=== PATIENT | female | born 1990 | race Caucasian/White ===

== ENCOUNTER 2019-01-01 19:11 | Inpatient (IN) | payer OTHER ==
--- NOTE | 2019-01-01 20:00 | Non Stress Test Report ---
Non Stress Test Datetime Report Generated by CPN: 01/01/2019 20:00 DEMOGRAPHIC EGA NST: 40.0 INDICATION Indication for Study (NST) Other: lc MONITORING Monitor Explained: Monitor Explained; Test Explained; Patient Verbalized Understanding Time on Monitor: 01/01/2019 19:30 Time off Monitor: 01/01/2019 19:50 NST Duration: 20 NST INTERVENTIONS NST Interventions: PO Hydration; Reposition Patient Physician Notified NST: Dr Younger BABY A: [id number] BABY A Movement : Present Contraction Frequency : irr FHR Baseline : 120 Accelerations : 15X15 Decelerations : None Variability : Moderate 6-25bpm NST Review: Meets Criteria for Reactive NST NST Review and Verified By : ZENOBIA Loving Results: Reactive NST REPORT Report Trigger: Send Report
[2019-01-01 20:25] LABS: APPEARANCE,URINE SLIGHTLY-CLOUDY; BILIRUBIN,URINE NEGATIVE (NEGATIVE); COLOR,URINE YELLOW; GLUCOSE, URINE NEGATIVE (NEGATIVE); KETONES,URINE 20 mg/dL (NEGATIVE); LEUKOCYTE ESTERASE,URINE TRACE (NEGATIVE); NITRITE,URINE NEGATIVE (NEGATIVE); PROTEIN,URINE NEGATIVE (NEGATIVE); URINE SPECIFIC GRAVITY 1.013; UROBILINOGEN,URINE NEGATIVE mg/dL (<2.0)
[2019-01-01 20:38] LABS: URINE AMPHETAMINES SCREEN NEGATIVE; URINE BARBITURATES SCREEN NEGATIVE; URINE BENZODIAZEPINES SCREEN NEGATIVE; URINE COCAINE SCREEN NEGATIVE; URINE MARIJUANA (THC) SCREEN NEGATIVE; URINE METHADONE SCREEN NEGATIVE; URINE PHENCYCLIDINE SCREEN NEGATIVE
[2019-01-01] MEDS ORDERED: OXYTOCIN 10 UNIT/ML VIAL ONE (21:01)
[2019-01-01] MEDS ORDERED: OXYTOCIN/NORMAL SALINE 20 UNIT/1,000 ML RTUINJ ONE (21:01)
[2019-01-01] MEDS ORDERED: PENICILLIN G-K 5 MILLION UNIT VIAL ONE (21:01)
[2019-01-01] MEDS ORDERED: MISOPROSTOL 0.2 MG TABLET ONE (21:01)
[2019-01-01] MEDS ORDERED: LIDOCAINE 1% INJ-PF (10 MG/ML) 30 ML SDV ONE (21:01)
[2019-01-01] MEDS ORDERED: PENICILLIN G POTASSIUM 5,000,000 UNIT in DEXTROSE 5%-WATER 100 ML IV ONE (21:27)
[2019-01-01] MEDS ORDERED: RINGERS SOLUTION,LACTATED 1,000 ML IV PRN (21:27)
[2019-01-01] MEDS ORDERED: PHENYLEPHRINE HCL INJ/PF 10 MG/1 ML SDV ONE (21:47)
[2019-01-01] MEDS ORDERED: EPHEDRINE SULFATE INJ 50 MG/1 ML AMPULE ONE (21:47)
[2019-01-01] MEDS ORDERED: FENTANYL CITRATE INJ/PF 100 MCG/2 ML AMPUL ONE (21:47)
[2019-01-01 21:48] LABS: ABSOLUTE BASOPHILS # (AUTO) 0.1 10^3/uL (0.0-0.2); ABSOLUTE EOSINOPHILS # (AUTO) 0.1 10^3/uL (0.0-0.6); ABSOLUTE LYMPHOCYTES (AUTO) 2.7 10^3/uL (0.5-4.7); ABSOLUTE MONOCYTES (AUTO) 1.1 10^3/uL (0.1-1.4); ABSOLUTE NEUT (AUTO) 12.7 10^3/uL (1.7-8.2); BASOPHILS % (AUTO) 0.3 % (0-2); EOSINOPHILS % (AUTO) 0.6 % (0-6); HEMATOCRIT 38.7 % (36.0-47.0); HEMOGLOBIN 13.5 g/dL (12.0-15.5); LYMPHOCYTES % (AUTO) 16.1 % (13-45); MEAN CORPUSCULAR HEMOGLOBIN 31.2 pg (27.0-33.4); MEAN CORPUSCULAR HGB CONC 34.7 g/dL (32.0-36.0); MEAN CORPUSCULAR VOLUME 90 fl (80-97); MONOCYTES % (AUTO) 6.6 % (3-13); PLATELET COUNT 164 10^3/uL (150-450); RED BLOOD COUNT 4.31 10^6/uL (3.72-5.28); RED CELL DISTRIBUTION WIDTH 13.6 % (11.5-14.0); SEGMENTED NEUTROPHILS % (AUTO) 76.4 % (42-78); TOTAL CELLS COUNTED % (AUTO) 100 %; WHITE BLOOD COUNT 16.6 10^3/uL (4.0-10.5)
[2019-01-01] MEDS ORDERED: FENTANYL/BUPIVACAINE/NS/PF 300 MCG/150 ML RTUINJ EPI ONE (21:48)
[2019-01-01] MEDS ORDERED: BUPIVACAINE HCL 0.25 % INJ/PF (2.5 MG/1 ML) 30 ML VIAL ONE (21:48)
[2019-01-01] MEDS ORDERED: ONDANSETRON HCL INJ/PF 4 MG/2 ML SDV ONE (21:58)
--- NOTE | 2019-01-01 22:52 | Admission Physical ---
Datetime Report Generated by CPN: 01/01/2019 22:52 CURRENT ADMISSION Chief Complaint: Uterine Contractions Indication for Induction: Not Applicable Admit Impression : Term, Intrauterine ; Active Labor; Intact Membranes Admit Plan: Admit to Unit; Initiate Labor Protocol ALLERGIES Medication Allergies: No Medication Allergies: No Known Allergies (01/01/2019) Latex: No Latex Allergies Food Allergies: n/a Environmental Allergies: n/a OBSTETRICAL HISTORY EDC: 01/01/2019 00:00 : 4 Para: 3 Gestational Diabetes: No Rh Sensitization: No Incompetent Cervix: No PERCY: No Infertility: No ART Treatment: No Uterine Anomaly: No IUGR: No Hx Previous C/S: No Macrosomia: No Hx Loss/Stillborn: No PIH: No Hx : No Placenta Previa/Abruption: No Depression/PP Depression: Yes PTL/PROM: No Post Hemorrhage: No Current Procedures: Ultrasound; NST Obstetrical History Comments: g1- 2012 girl g22014 boy g3 girl boy SEE RECORDS Alcohol: No Marijuana : No Cocaine: No Other Illicit Drugs: No Cigarettes: Never Smoker. 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 Surgery: No Heart Disease: No Hosp/Surgery: No Autoimmune Disorder: No Anesthetic Complications: No Kidney Disease: No Abnormal Pap Smear: No Neuro/Epilepsy: No Psychiatric Disorders: No Other Medical Diseases: No Hepatitis/Liver Disease: No Significant Family History: No Varicosities/Phlebitis: No Trauma/Violence : No Thyroid Dysfunction: No PHYSICAL EXAM General: Normal HEENT: Normal Neurologic: Normal Thyroid: Normal Heart: Normal Lungs: Normal Breast: Normal Back: Normal Abdomen: Normal Genitourinary Exam: Normal Extremities: Normal DTRs: Normal Pelvic Type: Adequate Vital Signs: Reviewed VAGINAL EXAM Dilatation: 8 Effacement: 100 Station: -1 Contraction Comments: q 2 MEMBRANES Membranes: Intact FETUS A EGA: 40.0 Monitoring: External US FHR- Baseline: 120s Variability: Moderate 6-25bpm Accelerations: 15X15 Decelerations: None FHR Category: Category I Admit Comment: This 28 yo presented to L_D c/o contractions. Her cervix was 3 cm and walked for a while. She progressed 4 cm quickly. She is GBS Positive. She reports good movement. No co-morbidities. PLANS FOR LABOR AND DELIVERY Labor and Delivery: None Pain Management: Epidural Feeding Preference: Formula Benefit of Breast Feed Discussed: Yes Circumcision: Yes INFORMED CONSENT Signature: with User ID: [email or web address]
[2019-01-01] MEDS ORDERED: ONDANSETRON HCL INJ/PF 4 MG/2 ML SDV IV ONE (23:39)
[2019-01-02] MEDS ORDERED: DIBUCAINE 1% OINTMENT 56 GM TP PRN (00:11)
[2019-01-02] MEDS ORDERED: OXYTOCIN/NORMAL SALINE 20 UNIT/1,000 ML RTUINJ IV PRN (00:11)
[2019-01-02] MEDS ORDERED: ZOLPIDEM TARTRATE 5 MG TABLET PO PRN (00:11)
[2019-01-02] MEDS ORDERED: BENZOCAINE/MENTHOL AEROSOL SPRAY 56 ML TOP PRN (00:11)
[2019-01-02] MEDS ORDERED: MEASLES,MUMPS&RUBELLA VACC/PF 0.5 ML VIAL SUBCUT PRN (00:11)
[2019-01-02] MEDS ORDERED: DIPH/PERTUSS(ACELL)/TETANUS VAC/PF 0.5 ML SYR (>=10YO) IM PRN (00:11)
[2019-01-02] MEDS ORDERED: ACETAMINOPHEN WITH CODEINE #3 TABLET PO PRN ×2 (00:11)
[2019-01-02] MEDS ORDERED: PENICILLIN G POTASSIUM 2,500,000 UNIT in DEXTROSE 5%-WATER 50 ML IV SCH (01:27)
--- NOTE | 2019-01-02 02:07 | Delivery Summary ---
Del Sum A-C Datetime Report Generated by CPN: 01/02/2019 02:07 DELIVERY PERSONNEL DELIVERY PERSONNEL: [id number] Delivery Doctor:: Joanne Jorgensen MD Labor and Delivery Nurse:: Mau Cardozo RN Nursery Nurse:: Carol Butterfield, RN MATERNAL INFORMATION Delivery Anesthesia: Epidural Delivery QBL: 150 Maternal Complications: None Provider Comments: of a viable male @2359 w/ an RODNEY presentation; APGARS 9, 9; no lacs LABOR SUMMARY EDC: 01/01/2019 00:00 Attempted: No Labor Anesthesia: Epidural LABOR INFORMATION Reason for Induction: Not Applicable Onset of Labor: 01/01/2019 17:00 Complete Dilatation: 01/01/2019 23:42 Other Ripening Agents: n/a Oxytocin: N/A Group B Beta Strep: positive Antibiotics # of Doses: 1 Antibiotics Time of Last Dose: 2130 Name of Antibiotic Given: PENICILLIN Steroids Given: None Reason Steroids Not Administered: Not Applicable Other Reason Not Administered: n/a MEMBRANES Membranes Rupture Method: Artificial Rupture of Membranes: 01/01/2019 23:07 Length of Rupture (hr): 0.87 Amniotic Fluid Color: Clear Amniotic Fluid Amount: Small Amniotic Fluid Odor: Normal STAGES OF LABOR Stage 1 hr: 6 Stage 1 min: 42 Stage 2 hr: 0 Stage 2 min: 17 Stage 3 hr: 0 Stage 3 min: 5 Total Time in Labor hr: 7 Total Time in Labor min: 4 VAGINAL DELIVERY Episiotomy: None Laceration #1: None Laceration Repair: Not Applicable Sponge Count Correct: Yes Sharps Count Correct: Yes CSECTION DELIVERY Primary Indication: N/A Secondary Indication: N/A BABY A INFORMATION Infant Delivery Date/Time: 01/01/2019 23:59 Method of Delivery: Vaginal Born in Route : No : N/A Forceps: N/A Vacuum Extraction: N/A Shoulder Dystocia : No PRESENTATION/POSITION BABY A Presentation: Cephalic Cephalic Presentation: Vertex Vertex Position: Right Occipital Anterior Breech Presentation: N/A PLACENTA INFORMATION BABY A Placenta Delivery Time : 01/02/2019 00:04 Placenta Method of Delivery: Spontaneous Placenta Status: Delivered SCORES BABY A Heart Rate 1 min: >100 bpm Resp Effort 1 min: Good Cry Reflex Irritability 1 min: Cough or Sneeze or Pulls Away Muscle Tone 1 min: Active Motion Color 1 min: Body [place], Extremities Blue Resuscitation Effort 1 min: Tactile Stimulation SCORE 1 MIN: 9 Heart Rate 5 min: >100 bpm Resp Effort 5 min: Good Cry Reflex Irritability 5 min: Cough or Sneeze or Pulls Away Muscle Tone 5 min: Active Motion Color 5 min: Body [place], Extremities Blue Resuscitation Effort 5 min: Tactile Stimulation SCORE 5 MIN: 9 INFANT INFORMATION BABY A Gestational Age at Delivery: 40.0 Gestational Status: Full Term- 39- 40.6 Weeks Outcome : Liveborn Infant Condition : Stable Infant Sex: Male IDENTIFICATION BABY A Verification Date/Time: 01/02/2019 00:09 ID Band Number: [id number] Mother's Name Verified: Yes RN Verifying : , RN and Laisha, RN WEIGHT/LENGTH BABY A Birthweight (gm): 3597 Weight (lb): 7 Weight (oz): 15 Length (in): 21.50 Infant Length (cm): 54.61 CORD INFORMATION BABY A No. Cord Vessels: 3 Nuchal Cord : N/A Cord Blood Taken: Yes-For Eval (Mom's Blood Type - or O+) Infant Suction: None ASSESSMENT BABY A Skin to Skin: Yes BABY B INFORMATION : N/A SIGNATURES Signature: with User ID: [email or web address]
[2019-01-02] MEDS: IBUPROFEN 800 MG TABLET PO SCH ×2 (06:15→14:00)
[2019-01-02] MEDS ORDERED: INFLUENZA QUAD (6MOS+) 2019-20 VAC 0.5 ML SYR IM ONE (08:00)
--- NOTE | 2019-01-02 09:11 | PDOC PROGRESS REPORT ---
Subjective-OB Progress Note for:: 01/02/19 Subjective: Doing well, no c/o, bottle feeding, wearing bra, hsb in room, no c/o Physical Exam (OB) Vital Signs: Temp Pulse Resp BP Pulse Ox 98.0 F 63 16 111/62 100 01/02/19 07:56 01/02/19 07:56 01/02/19 07:56 01/02/19 07:56 01/02/19 07:56 Intake & Output 01/01/19 01/02/19 01/03/19 06:59 06:59 06:59 Weight 107 kg - PIH/Pre-Eclampsia Headache: Absent Epigastric Pain: No Visual Changes: No - Lochia Lochia Amount: Scant < 10 ml Lochia Color: Rubra/Red - Abdomen Description: Tender, Soft Hernia Present: No Fundal Description: Firm, Midline Fundal Height: u/u - u/2 Objective-Diagnostic Laboratory: 01/01/19 21:36 01/01/19 01/01/19 01/01/19 19:58 21:36 21:36 WBC 16.6 H RBC 4.31 Hgb 13.5 Hct 38.7 MCV 90 MCH 31.2 MCHC 34.7 RDW 13.6 Plt Count 164 Seg Neutrophils % 76.4 Urine Color YELLOW Urine Appearance SLIGHTLY-CLOUDY Urine pH 6.0 Ur Specific [place] 1.013 Urine Protein NEGATIVE Urine Glucose (UA) NEGATIVE Urine Ketones 20 H Urine Blood NEGATIVE Urine Nitrite NEGATIVE Ur Leukocyte Esterase TRACE H Blood Type O POSITIVE Antibody Screen NEGATIVE Assessment and Plan(PN) - Assessment and Plan (2) Anxiety Is this a current diagnosis for this admission?: Yes (3) Depression Qualifiers: Major depression episode severity: unspecified Is this a current diagnosis for this admission?: Yes - Time Spent with Patient Time with patient: Less than 15 minutes Medications reviewed and adjusted accordingly: Yes - Disposition Anticipated Discharge: Home Within: within 24 hours
[2019-01-02] MEDS: SENNOSIDES/DOCUSATE 8.6-50 MG 1 EACH TABLET PO SCH (09:34)
[2019-01-02] MEDS: DOCUSATE SODIUM 100 MG CAPSULE PO SCH ×2 (09:34→18:04)
[2019-01-02] MEDS: FERROUS SULFATE 325 MG TABLET PO SCH ×2 (09:34→18:03)
[2019-01-02] MEDS: PRENATAL VITAMIN W DHA CAPSULE PO SCH (09:34)
[2019-01-03] MEDS: IBUPROFEN 800 MG TABLET PO SCH ×3 (01:15→13:09)
[2019-01-03 07:30] LABS: HEMATOCRIT 37.7 % (36.0-47.0); HEMOGLOBIN 12.8 g/dL (12.0-15.5); MEAN CORPUSCULAR HEMOGLOBIN 31.6 pg (27.0-33.4); MEAN CORPUSCULAR VOLUME 93 fl (80-97); PLATELET COUNT 129 10^3/uL (150-450); RED BLOOD COUNT 4.06 10^6/uL (3.72-5.28); RED CELL DISTRIBUTION WIDTH 13.7 % (11.5-14.0); WHITE BLOOD COUNT 10.7 10^3/uL (4.0-10.5)
[2019-01-03 08:01] VITALS: BP 118/58
--- NOTE | 2019-01-03 10:13 | PDOC DISCHARGE SUMMARY ---
Impression - Admit/DC Date/PCP Admission Date/Primary Care Provider: 01/01/19 21:29 [facility] Discharge Date: 01/03/19 - PP Day #2, doing well, no complaints, bottlefeeding, O+, Rubella Immune. GBS+ this . - Discharge Diagnosis (1) Positive GBS test Is this a current diagnosis for this admission?: Yes (2) Normal course Is this a current diagnosis for this admission?: Yes (3) Anxiety Is this a current diagnosis for this admission?: Yes (4) Delivery normal Is this a current diagnosis for this admission?: Yes (5) Depression Is this a current diagnosis for this admission?: Yes - Additional Information Resuscitation Status: Full Code Discharge Diet: As Tolerated, Regular Discharge Activity: Activity As Tolerated, No Lifting Over 10 Pounds, Pelvic Rest [facility]errals: [facility] [Primary Care Provider] - Prescriptions: Ibuprofen [Motrin 800 mg Tablet] 800 mg PO Q8 #60 tablet Home Medications: Prenat 115/Iron Fum/Folic/Dss [ 19 Tablet] 1 tab PO DAILY 01/01/19 Sertraline HCl [Zoloft 50 mg Tablet] 50 mg PO DAILY 01/01/19 Ibuprofen [Motrin 800 mg Tablet] 800 mg PO Q8 #60 tablet 01/03/19 HPI Reason(s) for Admission: Onset of Labor Procedures: NST, Ultrasound Intrapartum Procedure(s): Spontaneous Vaginal Delivery Hospital Course Hospital Course: routine Results Laboratory Results: WBC 10.7 10^3/uL (4.0-10.5) H 01/03/19 07:02 RBC 4.06 10^6/uL (3.72-5.28) 01/03/19 07:02 Hgb 12.8 g/dL (12.0-15.5) 01/03/19 07:02 Hct 37.7 % (36.0-47.0) 01/03/19 07:02 MCV 93 fl (80-97) 01/03/19 07:02 MCH 31.6 pg (27.0-33.4) 01/03/19 07:02 MCHC 34.0 g/dL (32.0-36.0) 01/03/19 07:02 RDW 13.7 % (11.5-14.0) 01/03/19 07:02 Plt Count 129 10^3/uL (150-450) L 01/03/19 07:02 Lymph % (Auto) 16.1 % (13-45) 01/01/19 21:36 Carter % (Auto) 6.6 % (3-13) 01/01/19 21:36 Eos % (Auto) 0.6 % (0-6) 01/01/19 21:36 Baso % (Auto) 0.3 % (0-2) 01/01/19 21:36 Absolute Neuts (auto) 12.7 10^3/uL (1.7-8.2) H 01/01/19 21:36 Absolute Lymphs (auto) 2.7 10^3/uL (0.5-4.7) 01/01/19 21:36 Absolute Monos (auto) 1.1 10^3/uL (0.1-1.4) 01/01/19 21:36 Absolute Eos (auto) 0.1 10^3/uL (0.0-0.6) 01/01/19 21:36 Absolute Basos (auto) 0.1 10^3/uL (0.0-0.2) 01/01/19 21:36 Seg Neutrophils % 76.4 % (42-78) 01/01/19 21:36 Urine Color YELLOW 01/01/19 19:58 Urine Appearance SLIGHTLY-CLOUDY 01/01/19 19:58 Urine pH 6.0 (5.0-9.0) 01/01/19 19:58 Ur Specific Bells 1.013 01/01/19 19:58 Urine Protein NEGATIVE mg/dL (NEGATIVE) 01/01/19 19:58 Urine Glucose (UA) NEGATIVE mg/dL (NEGATIVE) 01/01/19 19:58 Urine Ketones 20 mg/dL (NEGATIVE) H 01/01/19 19:58 Urine Blood NEGATIVE (NEGATIVE) 01/01/19 19:58 Urine Nitrite NEGATIVE (NEGATIVE) 01/01/19 19:58 Urine Bilirubin NEGATIVE (NEGATIVE) 01/01/19 19:58 Urine Urobilinogen NEGATIVE mg/dL (<2.0) 01/01/19 19:58 Ur Leukocyte Esterase TRACE (NEGATIVE) H 01/01/19 19:58 Urine Ascorbic Acid NEGATIVE (NEGATIVE) 01/01/19 19:58 Urine Opiates Screen NEGATIVE 01/01/19 19:58 Urine Methadone Screen NEGATIVE 01/01/19 19:58 Ur Barbiturates Screen NEGATIVE 01/01/19 19:58 Ur Phencyclidine Scrn NEGATIVE 01/01/19 19:58 Ur Amphetamines Screen NEGATIVE 01/01/19 19:58 U Benzodiazepines Scrn NEGATIVE 01/01/19 19:58 Urine Cocaine Screen NEGATIVE 01/01/19 19:58 U Marijuana (THC) Screen NEGATIVE 01/01/19 19:58 RPR NONREACTIVE (NONREACTIVE) 01/01/19 21:36 Blood Type O POSITIVE 01/01/19 21:36 Antibody Screen NEGATIVE 01/01/19 21:36 Plan Health Concerns: watch for PP depression Plan of Treatment: f/u with [facility] in 4 wks Time Spent: Less than 30 Minutes
[2019-01-03] MEDS: FERROUS SULFATE 325 MG TABLET PO SCH (10:15)
[2019-01-03] MEDS: DOCUSATE SODIUM 100 MG CAPSULE PO SCH (10:15)
[2019-01-03] MEDS: SENNOSIDES/DOCUSATE 8.6-50 MG 1 EACH TABLET PO SCH (10:15)
[2019-01-03] MEDS: PRENATAL VITAMIN W DHA CAPSULE PO SCH (10:15)
== END 2019-01-03 14:10 | disposition home or self-care (01) | DRG 807 ==
LOC: LC 19:11 → LR 21:29 → 2S 01-02 02:21
PROVIDERS: ADMIT Obstetrics & Gynecology; ATTEND Obstetrics & Gynecology
PROC: 10E0XZZ Delivery of Products of Conception, External Approach (ICD-10-PCS; principal; 2019-01-01)
DX: O99.824 Streptococcus B carrier state complicating childbirth (principal); Z37.0 Single live birth; O99.344 Other mental disorders complicating childbirth; F41.9 Anxiety disorder, unspecified; F32.9 Major depressive disorder, single episode, unspecified; Z3A.40 40 weeks gestation of pregnancy
CPT/HCPCS: 36415; 80307; 81005; 85025; 85027; 86592; 86850; 86900; 86901; 90686; J2370; J2405; J2540; J2590; J3010; J3490